=== PATIENT | female | born 1975 | race Caucasian/White ===

== ENCOUNTER → 2023-08-24 | Outpatient (CLI) | payer OTHER | LOC: M WHC 13:06 | PROVIDERS: ATTEND Nurse Practitioner Family | DX: Z12.31 Encounter for screening mammogram for malignant neoplasm of breast (principal) ==

== ENCOUNTER → 2023-08-24 | Outpatient (REF) | payer OTHER, MEDICAID | LOC: M SFHCWAGY 17:34 | PROVIDERS: ATTEND Nurse Practitioner Family | DX: Z12.4 Encounter for screening for malignant neoplasm of cervix (principal) ==

== ENCOUNTER 2023-09-22 09:45 | Day surgery (SDC) | payer OTHER ==
[~2023-09-22] VITALS: Ht 165.1 cm; Wt 78.2 kg
[~2023-09-22 09:45] MED LIST: NS 1,000 ML IV ONE; SYNT125T PO; propofoL 200 MG/20 ML VIAL As Ordered ONE
[2023-09-22] MEDS ORDERED: propofoL 200 MG/20 ML VIAL As Ordered ONE (10:44)
[2023-09-22 10:56] VITALS: TEMP 97.2
[2023-09-22 11:15] VITALS: BP 115/71; O2SAT 100
== END 2023-09-22 11:24 | disposition home or self-care (01) ==
LOC: M OPP 09:45 → EDUNIT# 10:45 → M OPP 11:24
PROVIDERS: ATTEND Surgery
DX: Z12.11 Encounter for screening for malignant neoplasm of colon (principal); Z86.010 Personal history of colon polyps; K63.5 Polyp of colon; K64.1 Second degree hemorrhoids; K57.30 Diverticulosis of large intestine without perforation or abscess without bleeding; F17.200 Nicotine dependence, unspecified, uncomplicated; Z90.49 Acquired absence of other specified parts of digestive tract; Z79.890 Hormone replacement therapy

== ENCOUNTER → 2024-09-11 | Outpatient (CLI) | payer MEDICAID, OTHER ==
[~2024-09-11] MED LIST changes: -NS 1,000 ML IV ONE; -propofoL 200 MG/20 ML VIAL As Ordered ONE
== END ==
LOC: M WHC 09:17
PROVIDERS: ATTEND Nurse Practitioner Family
DX: Z12.31 Encounter for screening mammogram for malignant neoplasm of breast (principal)

== ENCOUNTER → 2025-09-16 | Outpatient (CLI) | payer OTHER | LOC: M WHC 10:05 | PROVIDERS: ATTEND Nurse Practitioner Family | DX: Z12.31 Encounter for screening mammogram for malignant neoplasm of breast (principal); Z13.820 Encounter for screening for osteoporosis; R92.323 Mammographic fibroglandular density, bilateral breasts; F17.219 Nicotine dependence, cigarettes, with unspecified nicotine-induced disorders ==